=== PATIENT | male | born 1995 | race Caucasian/White ===

== ENCOUNTER 2017-04-01 18:20 | Emergency (ER) | payer OTHER ==
[~2017-04-01] VITALS: Ht 188 cm; Wt 95.5 kg
[~2017-04-01 18:20] MED LIST: ONDA8TAB7 SL
[2017-04-01 18:38] VITALS: BP 141/74; PULSE 69; RESP 20; O2SAT 99
--- NOTE | 2017-04-01 19:34 | ED.REPORT ---
HPI-Abd Pain M Under 40 Date of Service Apr 01, 2017 ED Provider: Alexandre Vitale DO Patient is a 21 year old male who presents to the ED complaining of right flank pain onset yesterday. Associated symptoms include pain that radiates into his back and dysuria. The patient also reports that at a previous doctor visit he had hematuria. Patient states that the pain is exacerbated with movement. Nursing Notes Stated Complaint: POSSIBLE KIDNEY STONES Chief Complaint: Male Abdominal Pain Nursing Notes Reviewed: Yes Allergies: Coded Allergies: No Known Allergies (Verified Allergy, Unknown, 04/01/17) Scheduled PRN Ondansetron ODT (Zofran ODT) 8 Mg Tablet 8 MG SL Q4H PRN PRN For Nausea General Time Seen by MD: 19:34 Chief Complaint Flank pain right Hx Obtained From: Patient Arrived By: Walk-in Sudden in Onset?: Yes Onset Occurred: Yesterday Location: : Flank right Quality: Painful Radiation: : Back Severity: Current: Moderate Exacerbated by: Movement Recent Healthcare: No recent doctor visit, No recent hospitalization Past Medical History Past Medical History Denies Past Surgical History Denies Family History Denies any blood disorders Smoking History Unknown if Ever Smoker Social History nasal polyp surgery years ago Other Social History: Good social support, Local resident Ambulatory Status Independent Review of Systems Constitutional: Denies: Chills, Fever Respiratory: Denies: Non-productive cough, Shortness of breath Male: Reports Dysuria, Reports Flank pain, Reports Hematuria, Denies Incontinence Musculoskeletal: Reports: Back pain, Denies: Extremity pain Complete sys rev & neg: except as marked. Skin: Denies Itching, Denies Rash Physical Exam Initial Vital Signs Vital Signs (First) Date Time Temp Pulse Resp B/P Pulse Ox O2 Delivery O2 Flow Rate FiO2 04/01/17 18:38 37.3 69 20 141/74 99 Room Air Initial VS: Reviewed General/Constitutional: Awake, Alert, No acute distress Respiratory / Chest: Atraumatic, Breath sounds NL, Breath sounds = bilat, No respiratory distress Cardiovascular: Heart rate NL, Regular rhythm, Heart sounds NL Abdomen: Atraumatic, Soft, Non-tender Back: Atraumatic right CVA tenderness Head / Eyes: Atraumatic, Normocephalic, PERRL, EOMI Neurologic: Oriented X3, Speech NL, No motor deficits, No sensory deficits Skin: Atraumatic, Color NL, No rash, Warm, Dry Psychiatric: Affect NL, Mood NL Interpretation & Diagnostics Lab Results Interpretation Test 04/01/17 19:23 Urine Color Yellow (YELLOW) Urine Appearance Hazy (CLEAR,HAZY) Urine pH 6.5 (5.0-8.0) Urine Specific [place] 1.005 (1.003-1.035) Urine Protein Negativemg/dL (NEG,TRACE) Urine Glucose (UA) Negativemg/dL (NEGATIVE) Urine Ketones Negativemg/dL (NEGATIVE) Urine Occult Blood Moderate (NEGATIVE) Urine Nitrite Negative (NEGATIVE) Urine Bilirubin Negative (NEGATIVE) Urine Urobilinogen Normalmg/dL (NORMAL) Urine Leukocyte Esterase Negative (NEGATIVE) Urine RBC 11-50/hpf (0-2) Urine WBC 0-5/hpf (0-5) Urine Epithelial Cells Few/hpf (NONE-MOD) Urine Crystals None seen (NONE SEEN) Urine Bacteria Few/hpf (NONE-FEW) Urine Hyaline Casts None/lpf (NONE) Urine Granular Casts None seen (NONE SEEN) Urine Waxy Casts None seen (NONE SEEN) Urine Red Blood Cell Casts None seen (NONE SEEN) Urine White Blood Cell Casts None seen (NONE SEEN) Urine Mucus None seen (None Seen) Urine Trichomonas None seen (NONE SEEN) Urine Yeast None (NONE SEEN) Urinalysis Comment None Urine Culture Reflexed Not indicated CT Abd / Pelvis Interpretation IMPRESSION: 1. No hydronephrosis, nephrolithiasis, hydroureter, or ureterolithiasis. 2. No acute intra-abdominal findings. Normal appendix. Dictated by: Shavon Eckert M.D. on 04/01/2017 at 21:19 Approved by: Shavon Eckert M.D. on 04/01/2017 at 21:21 Interpretation / Wet Read by: Interpret - Radiologist Re-Eval/Medical Decision Med Decision/Clinical Course CT scan was reassuring. Urinalysis shows hematuria. This may be traumatic although there is no good history of trauma or this may be infectious or related to a bladder anomaly. I will place him on antibiotics for possible sexually transmitted infection because he has the dysuria. We will culture his urine. We will send out the GEN probe. I will also have him follow up with urologist for cystoscopy. Re-Evaluation/Progress : Time of Eval: 21:46 Re-Evaluation/Progress Note: Discussed results and plan for discharge. Patient understands and agrees to plan. All questions were addressed. Counseled Regarding: Diagnosis, Lab results, Need for follow-up, When/why to return to ED Patient Discharge & Departure Primary Impression: Hematuria Disposition: Home Discharge Condition All VS Reviewed: Yes Condition: Stable Patient Instructions: Hematuria (ED) Additional Instructions: The CAT scan was normal. No signs of a kidney stone or any intra abdominal abnormalities. There are a large number of red blood cells in your urine. We are culturing your urine to determine if this is from an infection. We are sending urine out to test if this is from a sexual transmitted infection as well. In the meantime, take Doxycycline twice daily for 7 days. Avoid direct sunlight while taking the doxycycline. If the sexually transmitted infection tests come back negative, then I strongly recommend that you see a urologist to discuss the blood in your urine. Call the referral clinic for follow-up. Call the referral urologist as well. The urine test should be available by Monday. Call the ED here for urine results. If the sexual transmitted infection test comes back positive then your partner needs to be treated as well. Referrals: Ann-Marie Fierro MD [facility] Nikita Attestation Portions of this note were transcribed by Phyllis Gooden. I, Dr. Vitale personally performed the history, physical exam and medical decision-making; I reviewed and confirmed the accuracy of the information in the transcribed note. Signed by: Nikita Quiles, 04/01/17 and 1945 copies to: [facility] Alexandre Vitale DO Apr 01, 2017 19:34 Marimar Gooden Apr 01, 2017 19:43
[2017-04-01 20:04] LABS: COLOR,URINE YELLOW (YELLOW); OCCULT BLOOD,URINE MODERATE (NEGATIVE); PH,URINE 6.5 (5.0-8.0); UROBILINOGEN,URINE NORMAL (NORMAL)
[2017-04-01 20:05] LABS: APPEARANCE,URINE HAZY (CLEAR,HAZY)
--- NOTE | 2017-04-01 21:22 | DRSVH ---
PROCEDURE: CT KUB ([id number]) INDICATIONS: right flank pain, hematuria TECHNIQUE: Noncontrast 5 mm thick sections acquired from the diaphragms to the symphysis. 5 mm thick coronal an d sagittal reformats were then performed. For radiation dose reduction, the following was used: aut omated exposure control, adjustment of mA and/or kV according to patient size. COMPARISON: None. FINDINGS: Image quality: Excellent. Lung bases: Lung bases are clear. Heart size is normal. Urinary system: Both kidneys are normal in size. No kidney stones. No hydronephrosis or perinephri c fat stranding. Both ureters appear non-dilated throughout their expected courses. Bladder wall th ickness is normal; no calcified bladder stones. Other solid organs: Liver and spleen are normal in size. Gallbladder is contracted. Pancreas is no rmal in contours. No adrenal nodules. Peritoneum and bowel: Unenhanced bowel loops demonstrate normal wall thickness and caliber. The kevin endix is thin walled. No free fluid or air. Nodes and vessels: No retroperitoneal or mesenteric adenopathy by size criteria. Aorta and inferior vena cava are normal in caliber. Abdominal wall: No ventral hernias. Pelvis: No free pelvic fluid. No inguinal hernias or adenopathy. Bones: No suspicious bony lesions. No vertebral body compression fractures. IMPRESSION: 1. No hydronephrosis, nephrolithiasis, hydroureter, or ureterolithiasis. 2. No acute intra-abdominal findings. Normal appendix. Dictated by: Shavon Eckert M.D. on 04/01/2017 at 21:19 Approved by: Shavon Eckert M.D. on 04/01/2017 at 21:21
[2017-04-01] MEDS ORDERED: cefTRIAXone Inj 250 MG, Lidocaine PF 1% Inj 0.9 ML in Syringe 1 EACH IM ONE (21:40)
[2017-04-01 22:26] VITALS: BP 141/74; PULSE 69; RESP 16; O2SAT 99
== END 2017-04-01 22:27 | disposition home or self-care (01) ==
LOC: SED 18:20
DX: R31.9 Hematuria, unspecified (principal)
CPT/HCPCS: 74176; 81000; 87491; 87591; 96372; 99285; J0696